=== PATIENT | female | born 1945 | race Two or more races ===

== ENCOUNTER → 2023-04-21 | Outpatient (CLI) | payer MEDICARE | END | disposition home or self-care (01) | LOC: Rad HDHVI 08:07 | PROVIDERS: ATTEND Internal Medicine Cardiovascular Disease | DX: I65.21 Occlusion and stenosis of right carotid artery (principal); E78.00 Pure hypercholesterolemia, unspecified | CPT/HCPCS: 93880 ==

== ENCOUNTER → 2023-04-26 | Outpatient (CLI) | payer MEDICARE ==
[~2023-04-26] VITALS: Ht 167.6 cm; Wt 59.0 kg
== END | disposition home or self-care (01) ==
LOC: Rad HDHVI 08:29
PROVIDERS: ATTEND Internal Medicine Cardiovascular Disease
DX: R42 Dizziness and giddiness (principal); R00.2 Palpitations; R06.02 Shortness of breath; E78.00 Pure hypercholesterolemia, unspecified; Z82.49 Family history of ischemic heart disease and other diseases of the circulatory system; Z79.82 Long term (current) use of aspirin; Z79.899 Other long term (current) drug therapy
CPT/HCPCS: 78452; 93017; 96374; A9500

== ENCOUNTER → 2024-03-13 | Outpatient (CLI) | payer MEDICARE | END | disposition home or self-care (01) | LOC: Rad HDHVI 08:05 | PROVIDERS: ATTEND Internal Medicine Cardiovascular Disease | DX: R42 Dizziness and giddiness (principal) | CPT/HCPCS: 93880 ==

== ENCOUNTER → 2024-03-29 | Outpatient (CLI) | payer MEDICARE | END | disposition home or self-care (01) | LOC: Rad HDHVI 08:02 | PROVIDERS: ATTEND Internal Medicine Cardiovascular Disease | DX: I10 Essential (primary) hypertension (principal) | CPT/HCPCS: 93306 ==

== ENCOUNTER → 2024-05-02 | Outpatient (CLI) | payer MEDICARE ==
[~2024-05-02] MED LIST: CHOLPOW45 PO; CYCL-839 PO; FAMO20TA10 PO; FLU01T PO; LEVO25TA6 PO; MAGN250T8 PO; MULT-1018 PO; OMEGCAP2 PO; SUCR1SUS5 PO; SUCR1TAB31 OR
[2024-05-02 09:20] VITALS: BP 128/60; PULSE 57; RESP 16; O2SAT 100
[2024-05-02 09:34] VITALS: BP 125/61; PULSE 55; RESP 16; O2SAT 100
== END | disposition home or self-care (01) ==
LOC: Rad HDHVI 08:54
PROVIDERS: ATTEND Internal Medicine Cardiovascular Disease
DX: Z01.811 Encounter for preprocedural respiratory examination (principal); E78.5 Hyperlipidemia, unspecified; I10 Essential (primary) hypertension; Z82.49 Family history of ischemic heart disease and other diseases of the circulatory system
CPT/HCPCS: 71046; 93005; G0463

== ENCOUNTER 2024-05-04 06:55 | Day surgery (SDC) | payer MEDICARE ==
[2024-05-02 11:32] LABS: Anion Gap 5 (5-15); Carbon Dioxide 30 mmol/L (20-31); Chloride 107 mmol/L (98-107); Potassium 4.6 mmol/L (3.5-5.1); Sodium 142 mmol/L (136-145)
[2024-05-02 11:33] LABS: Calcium 10.2 mg/dL (8.7-10.4)
[2024-05-02 11:37] LABS: Basophils # (auto) 0.1 10 ^3/uL (0-0.2); Basophils % (auto) 0.9 % (0.0-2.0); Eosinophils # (auto) 0.2 10 ^3/uL (0-0.8); Eosinophils % (auto) 2.9 % (0.0-7.0); Hematocrit 43.6 % (36.0-46.0); Hemoglobin 14.6 g/dL (12.2-16.2); Lymphocytes # (auto) 1.9 10 ^3/uL (0.4-5.4); Lymphocytes % (auto) 31.1 % (10.0-50.0); Mean Corpuscular Hemoglobin 30.2 pg (28.0-32.0); Mean Corpuscular Hgb Conc. 33.6 g/dL (32.0-36.0); Monocytes # (auto) 0.6 10 ^3/uL (0-1.3); Monocytes % (auto) 9.7 % (0.0-12.0); Neutrophils # (auto) 3.4 10 ^3/uL (1.6-8.6); Neutrophils % (auto) 55.4 % (37.0-80.0); Nucleated Red Blood Cells % 0.2 %; Platelet Count (auto) 185 10^3/uL (140-450); Red Blood Cells 4.84 10^6/uL (4.0-5.20); Red Cell Distribution Width 14.4 % (11.8-14.3); White Blood Cell 6.2 10^3/uL (4.4-10.8)
[2024-05-02 11:38] LABS: BUN/Creatinine Ratio 21.9 (10.0-20.0); Blood Urea Nitrogen 16 mg/dL (9-23); Glucose 97 mg/dL (74-106)
[2024-05-02 11:40] LABS: INR 1.03 (0.9-1.15); Partial Thromboplastin Time 28.3 SEC (24.5-34.5); Prothrombin Time 10.9 sec (9.3-11.8)
[~2024-05-04] VITALS: Ht 167.6 cm; Wt 59.4 kg
[~2024-05-04 06:55] MED LIST changes: -SUCR1TAB31 OR
[2024-05-04] MEDS ORDERED: fentaNYL CITRATE 100 MCG/2 ML VL ONE (08:58)
[2024-05-04] MEDS ORDERED: LIDOCAINE 2%HCL (LOCAL ANESTH.) INJ 20ML MDV ONE ×2 (08:58→09:15)
[2024-05-04] MEDS ORDERED: MIDAZOLAM HCL 2MG/2ML 2ml VIAL (1mg/ml) ONE (08:58)
[2024-05-04 09:17] VITALS: BP 111/60; PULSE 57; RESP 12; O2SAT 100
[2024-05-04 09:30] VITALS: BP 114/57; PULSE 60; RESP 12; O2SAT 98
[2024-05-04 09:45] VITALS: BP 116/41; PULSE 60; RESP 12; O2SAT 96
[2024-05-04 10:00] VITALS: BP 126/53; PULSE 60; RESP 12; O2SAT 96
[2024-05-04 10:11] VITALS: BP 131/59; PULSE 54; RESP 12
== END 2024-05-04 10:33 | disposition home or self-care (01) ==
LOC: CATH 06:55
PROVIDERS: ATTEND Internal Medicine Cardiovascular Disease
DX: R55 Syncope and collapse (principal); Z88.6 Allergy status to analgesic agent
CPT/HCPCS: 33285; 36415; 71045; 80048; 85025; 85610; 85730; C1764; J2250; J3010; 99152

== ENCOUNTER 2025-04-19 06:46 | Inpatient (IN) | payer MEDICARE ==
[2025-04-16 11:43] LABS: Hematocrit 43.8 % (36.0-46.0); Hemoglobin 14.9 g/dL (12.2-16.2); Mean Corpuscular Hemoglobin 29.8 pg (28.0-32.0); Mean Corpuscular Volume 87.7 fL (80.0-100.0); Nucleated Red Blood Cells % 0.0 %
[2025-04-16 11:49] LABS: Chloride 103 mmol/L (98-107); Potassium 4.3 mmol/L (3.5-5.1); Sodium 142 mmol/L (136-145)
[2025-04-16 11:50] LABS: Anion Gap 10 (5-15); Carbon Dioxide 29 mmol/L (20-31)
[2025-04-16 11:51] LABS: Calcium 9.6 mg/dL (8.7-10.4)
[2025-04-16 11:55] LABS: BUN/Creatinine Ratio 19.7 (10.0-20.0); Blood Urea Nitrogen 15 mg/dL (9-23); Glucose 96 mg/dL (74-106)
[2025-04-16 11:57] LABS: INR 1.01 (0.9-1.15); Partial Thromboplastin Time 29.6 SEC (24.5-34.5); Prothrombin Time 10.7 sec (9.3-11.8)
[2025-04-19] VITALS (41 sets, daily range): BP systolic 99–150; BP diastolic 41–97; PULSE 57–86; RESP 7–26; TEMP 97.1–98.6; O2SAT 92–100
[~2025-04-19] VITALS: Ht 165.1 cm; Wt 63.8 kg
[~2025-04-19 06:46] MED LIST changes: -FLU01T PO; -MAGN250T8 PO; -OMEGCAP2 PO
[2025-04-19] MEDS: VANCOMYCIN HCL 1000 MG VL ONE (09:49)
[2025-04-19] MEDS: fentaNYL CITRATE 100 MCG/2 ML VL ONE (09:49)
[2025-04-19] MEDS: MIDAZOLAM HCL 2MG/2ML 2ml VIAL (1mg/ml) ONE (09:50)
[2025-04-19] MEDS: LIDOCAINE 2%HCL (LOCAL ANESTH.) INJ 20ML MDV ONE ×3 (09:51→11:01)
[2025-04-19] MEDS: ceFAZolin 1GM/50ML 50 ML IV ONE (09:51)
[2025-04-19] MEDS: IODIXANOL 320MG/ML 100ML BTL IV ONE (10:16)
[2025-04-19] MEDS: HYDROmorphone HCL 2 MG/ML VL/or syr ONE (10:28)
[2025-04-19] MEDS: DOPamine 1600MCG/ML D5W 250 ML IV ONE (10:43)
--- NOTE | 2025-04-19 11:29 | DVH ---
EXAM: XY CHEST PORTABLE Indication: pain; s/p PPM Technique: Single frontal view of the chest was obtained Comparison: XY CHEST TWO VIEWS ROUTINE on DOS: 04/16/25, XY CHEST PORTABLE on DOS: 05/04/24, XY CHEST TWO VIEWS ROUTINE on DOS: 05/02/24, ECHO 2D MODE CARDIAC DOP on DOS: 04/07/23 FINDINGS: Lines and Tubes: Cardiac pacemaker projects over left chest wall. Lungs: No focal consolidation. Pleura: No effusion. No pneumothorax. Cardiomediastinal contours: Unremarkable. Atherosclerotic vascular calcifications of the thoracic ao rta are noted. Bones: No acute osseous abnormality. IMPRESSION: No acute cardiopulmonary disease.
--- NOTE | 2025-04-19 11:42 | DVHOP ---
DATE OF SURGERY: 04/19/2025 PROCEDURE PERFORMED: Explantation of loop recorder. INDICATIONS: The patient with history of palpitations, syncopal episode, now had a loop recorder implanted. She has adequate information that she needs to achieve a permanent pacemaker. She had sinus arrest period and high-degree AV block as well and because of the combination as well, the patient needs a pacemaker. Therefore, the loop recorder can be removed. DESCRIPTION OF PROCEDURE: The patient was prepped and draped in a sterile condition. Then, 1% Xylocaine was used to anesthetize the left anterior chest where the loop record had been implanted. Then, 1% Xylocaine was used to anesthetize the incision site and along the loop recorder. A small 1 cm incision was made and through the incision and using a Su, we were able to extract the loop recorder. There were no complications. The patient tolerated the procedure. The incision site was stapled. CONCLUSION: The patient has explantation of [employer] loop recorder, model ProMonitor 3, serial number [id number]. Implanted date was 05/04/2024, explanted date is 04/19/2025. CONCLUSION: The patient has successful explantation of [employer] loop recorder. Daniel Jimenez MD SA/AMBIKA TID: [id number] RECEIPT: [id number]
[2025-04-19] MEDS: ONDANSETRON HCL 4 MG/2 ML VIAL ONE (11:44)
--- NOTE | 2025-04-19 11:48 | DVHOP ---
DATE OF SURGERY: 04/19/2025 PROCEDURES PERFORMED: * Dual chamber permanent pacemaker implantation. * Venography. * Conscious sedation. DESCRIPTION OF PROCEDURE: The patient was prepped and draped in a sterile condition. Then, 1% Xylocaine was used to anesthetize the left subclavicular region. Using a Cook needle, left subclavian vein was engaged after venography was done. The patient, however, had a very horizontal heart and the anatomy was very distorted. Venogram showed the patient's subclavian artery was originating from a different location. Following the venography, we were able to access the subclavian/brachial portion of the vein. Via Seldinger technique, a guidewire was then appropriately positioned. Then, using a 10 blade, a linear incision was made. Using blunt dissection and electrocautery, the pocket was then dissected out. Using a 9-Greek peel-away sheath, right ventricular active fixation lead was appropriately positioned, but because of the horizontal nature of the heart while manipulating the RV lead, the lead actually jumped forward rapidly. We feared perforation of the ventricle. We repositioned the lead now in the right ventricular septum. Appropriate threshold was obtained. Lead was secured to the chest wall using 0 Ethibond. Then, using a 7-Greek peel-away sheath, right atrial active fixation lead was then appropriately position. Threshold parameters were obtained. The lead was secured to the chest wall using 0 Ethibond. Pocket was irrigated using vancomycin saline solution. Pocket was closed using 3-0 Monoderm subcutaneous sutures followed by 3-0 Monoderm subcuticular sutures. However, following the insertion of the pacemaker, we noted that her blood pressure had precipitously dropped, running in the 140s systolic to into the 60s and 70s. Therefore, fluid was given. Dopamine was initiated. Then, a chest x-ray was performed. It showed no evidence for pneumothorax or tension pneumothorax. A 2D echocardiogram was performed while the patient was still on the table, and it was felt that the patient had pericardial effusion, findings consistent with tamponade. Therefore, once the pacemaker insertion was completed, we proceeded to do a pericardiocentesis per protocol. It will be dictated in a separate note. Daniel Jimenez MD SA/AMBIKA TID: [id number] RECEIPT: [id number]
--- NOTE | 2025-04-19 11:52 | DVHOP ---
DATE OF SURGERY: 04/19/2025 DESCRIPTION OF PROCEDURE: The patient, who needed a permanent pacemaker implantation, but the horizontal nature of the heart while inserting the pacemaker, the ventricular lead essentially jumped forward while we were manipulating it. It appeared as though we had perforated the heart and suspicion was correct. The patient precipitously dropped her blood pressure and echocardiogram showed a 1 cm pericardial effusion. We proceeded to do pericardiocentesis under conscious sedation, under fluoroscopic guidance and under echocardiography guidance. The patient was prepped and draped under sterile conditions. Then, 1% Xylocaine was used to anesthetize the subxiphoid region. A 1 cm cut was made and using the pericardiocentesis tray needle, we were able to advance into the pericardial space. Agitated saline was then injected and it appeared also we were in the correct position. Following that, the pericardiocentesis catheter was implanted. Pigtail catheter was implanted, but we needed extra support, and therefore, we had to use a Supra Core wire for the support it needed. Following the placement of the pericardial pigtail catheter, we were able to withdraw 180 mL of sanguineous bloody drainage, at which point the blood pressure responded back to normal, tachycardia resolved, and the patient remained asymptomatic. A total of 200 mL was withdrawn. There was no evidence of any further effusion noted. The RV collapse completely resolved. We left the pigtail catheter for overnight purposes and to be monitored for 24 hours. One unit of blood transfusion will be given. The patient received 1000 mL of normal saline during the course of the procedure to stabilize the blood pressure. Dopamine was titrated off and the patient's blood pressure remained stable at 117/74 with a pulse of 60. CONCLUSION: The patient developed pericardiocentesis, which is a known complication of pacemaker implantation and the lead jumped forward because of horizontal orientation of the heart. We successfully repositioned the lead. Pacemaker was implanted successfully and pericardiocentesis was done promptly during the same course of implantation. At this time, the patient is hemodynamically stable. No further workup is required. We will monitor her with serial chest x-ray and EKG as well as echocardiography. Daniel Jimenez MD SA/AMBIKA TID: [id number] RECEIPT: [id number]
[2025-04-19] MEDS ORDERED: ACETAMINOPHEN 325 MG TAB PO PRN (12:15)
[2025-04-19] MEDS ORDERED: SUCRALFATE 1 GM/10 ML ORAL SUSP PO PRN (12:15)
[2025-04-19] MEDS ORDERED: NITROGLYCERIN 0.4 MG SL TAB SL PRN (12:15)
[2025-04-19] MEDS ORDERED: MORPHINE SULFATE INJ 2 MG/ml SYRG IV PRN (12:15)
[2025-04-19] MEDS ORDERED: MORPHINE SULFATE 4 MG/ML SYR/VIAL IV PRN (13:45)
[2025-04-19] MEDS ORDERED: HYDROcodone-ACET 10/325MG TAB PO PRN (17:30)
[2025-04-19] MEDS: HYDROmorphone HCL 2 MG/ML VL/or syr IV PRN (17:42)
[2025-04-19] MEDS: ONDANSETRON HCL 4 MG/2 ML VIAL IV PRN (17:43)
[2025-04-19] MEDS: ceFAZolin 1GM/50ML 50 ML IV SCH (18:41)
[2025-04-19] MEDS: KETOROLAC TROMETH 30 MG/ML 1ML VIAL IV PRN (22:53)
[2025-04-20] VITALS (33 sets, daily range): BP systolic 92–135; BP diastolic 48–69; PULSE 61–77; RESP 9–18; TEMP 97.6–98.8; O2SAT 90–98
[2025-04-20 04:20] LABS: Hematocrit 38.9 % (36.0-46.0); Hemoglobin 13.5 g/dL (12.2-16.2); Mean Corpuscular Hemoglobin 30.1 pg (28.0-32.0); Mean Corpuscular Volume 86.6 fL (80.0-100.0); Nucleated Red Blood Cells % 0.1 %
[2025-04-20 04:37] LABS: Anion Gap 10 (5-15); Carbon Dioxide 26 mmol/L (20-31); Chloride 106 mmol/L (98-107); Potassium 3.9 mmol/L (3.5-5.1); Sodium 142 mmol/L (136-145)
[2025-04-20 04:43] LABS: BUN/Creatinine Ratio 27.0 (10.0-20.0); Blood Urea Nitrogen 17 mg/dL (9-23)
[2025-04-20 04:48] LABS: Calcium 8.5 mg/dL (8.7-10.4); Glucose 112 mg/dL (74-106)
--- NOTE | 2025-04-20 05:50 | DVH ---
CHEST RADIOGRAPH Indication: S/P PPI Technique: Single frontal view of the chest was obtained COMPARISON: XY CHEST PORTABLE on DOS: 04/19/25, XY CHEST TWO VIEWS ROUTINE on DOS: 04/16/25, XY CHEST P ORTABLE on DOS: 05/04/24, XY CHEST TWO VIEWS ROUTINE on DOS: 05/02/24 FINDINGS: Lines and Tubes: None. Left anterior chest wall dual lead cardiac pacing device. Lungs: New minimal bibasilar pulmonary airspace disease. Pleura: No effusion. No pneumothorax. Cardiomediastinal contours: Unremarkable Bones: Unremarkable IMPRESSION: 1. New minimal bibasilar pulmonary airspace disease.
--- NOTE | 2025-04-20 06:17 | DVHHP ---
ADMIT DATE: 04/19/2025 HISTORY OF PRESENT ILLNESS: This is a patient who is 79 years old with history of syncope, now loop recorder shows the patient to have high-grade blockage of the AV node as well as pauses of the sinus node. The patient required a permanent pacemaker implantation and the loop recorder information was adequately obtained and now the loop recorder is to be discontinued. It was a year ago when the loop recorder was initially implanted, it is a [employer] loop recorder. PAST MEDICAL HISTORY: Pertinent medical history is significant for: * Hypertension. * Hyperlipidemia. * Sick sinus syndrome. * History of syncope. REVIEW OF SYSTEMS: She denies any seizure disorder. No melena or hematuria. No hematemesis, hemoptysis or hematuria. She denies any bleeding diathesis at this time. She denies any history of CVA as stated. Denies any inflammatory bowel disease. No mixed connective tissue disease. No history of congestive heart failure. No history of systolic or diastolic dysfunction. PHYSICAL EXAMINATION: VITAL SIGNS: Blood pressure is 142/76, pulse of 52 and regular, O2 saturation 94% on room air. HEENT: Pupils are equal and reactive. NECK: Supple. Carotid pulses are 2+ and symmetrical. PULMONARY: Clear to auscultation. CARDIOVASCULAR: Regular rate. PMI is not displaced. ABDOMEN: Soft and nontender. Normal bowel sounds. SKIN: Unremarkable. EXTREMITIES: Unremarkable. NEUROLOGIC: The patient is intact. ASSESSMENT AND PLAN: Thus, the patient with: * Sinus arrest. * Syncope. * History of AV block by tele-monitor. The patient is now to undergo dual-chamber permanent pacemaker implantation and removal/extraction of the loop recorder. Daniel Jimenez MD SA/GISELA TID: [id number] RECEIPT: [id number]
[2025-04-20] MEDS: LEVOTHYROXINE SODIUM 25 MCG TAB PO SCH (06:33)
--- NOTE | 2025-04-20 07:34 | ECG ---
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
--- NOTE | 2025-04-20 09:16 | DVHPN2 ---
Progress Note - Dictate Date Seen: Apr 20, 2025 Medical Necessity Reason Pt with a Central, PICC or Fol: No Subjective This is a patient who is 79 years old with history of syncope, now loop recorder shows the patient to have high-grade blockage of the AV node as well as pauses of the sinus node. The patient required a permanent pacemaker implantation and the loop recorder information was adequately obtained and now the loop recorder is to be discontinued. It was a year ago when the loop recorder was initially implanted, it is a [employer] loop recorder. PAST MEDICAL HISTORY: Pertinent medical history is significant for: * Hypertension. * Hyperlipidemia. * Sick sinus syndrome. * History of syncope. REVIEW OF SYSTEMS: She denies any seizure disorder. No melena or hematuria. No hematemesis, hemoptysis or hematuria. She denies any bleeding diathesis at this time. She denies any history of CVA as stated. Denies any inflammatory bowel disease. No mixed connective tissue disease. No history of congestive heart failure. No history of systolic or diastolic dysfunction. vital signs Vital Sign Date Time Temp Pulse Resp B/P (MAP) Pulse Ox O2 Delivery O2 Flow Rate FiO2 04/20/25 07:56 73 98 Nasal Cannula* 1 24 04/20/25 07:30 14 04/20/25 07:00 101/54 (70) 04/20/25 04:00 98.7 98.7 Total Intake and Output 04/19/25 04/19/25 04/20/25 15:00 23:00 07:00 Intake Total 375 ml 300 ml Output Total 70 ml 150 ml Balance 305 ml 150 ml medications Current Medications Medications Dose Ordered Sig/Mari Route Start Time Stop Time Status Last Admin Dose Admin Acetaminophen 650 mg Q6HP PRN PO 04/19/25 12:15 Nitroglycerin 0.4 mg Q5MINP PRN SL 04/19/25 12:15 Morphine Sulfate 2 mg Q30M PRN IV 04/19/25 12:15 Cancel Cefazolin Sodium 50 ml @ 100 mls/hr Q8HR IV 04/19/25 18:00 04/20/25 06:23 100 MLS/HR Hydromorphone HCl 0.5 mg Q6HP PRN IV 04/19/25 12:15 04/19/25 17:42 0.5 MG Famotidine 20 mg DAILY PO 04/20/25 10:00 Levothyroxine Sodium 75 mcg QAM PO 04/20/25 07:00 04/20/25 06:33 75 MCG Sucralfate 2 gm BIDP PRN PO 04/19/25 12:15 Ondansetron HCl 4 mg Q4HPRN PRN IV 04/19/25 13:15 04/19/25 17:43 4 MG Morphine Sulfate 2 mg Q30MIN PRN IV 04/19/25 13:45 Acetaminophen/ Hydrocodone Bitart 1 tab Q6HP PRN PO 04/19/25 17:30 Ketorolac Tromethamine 30 mg Q8HP PRN IV 04/19/25 22:00 04/24/25 21:59 04/20/25 07:05 30 MG objective PHYSICAL EXAMINATION: VITAL SIGNS: Blood pressure is 142/76, pulse of 52 and regular, O2 saturation 94% on room air. HEENT: Pupils are equal and reactive. NECK: Supple. Carotid pulses are 2+ and symmetrical. PULMONARY: Clear to auscultation. CARDIOVASCULAR: Regular rate. PMI is not displaced. ABDOMEN: Soft and nontender. Normal bowel sounds. SKIN: Unremarkable. EXTREMITIES: Unremarkable. NEUROLOGIC: The patient is intact. laboratory and microbiology Laboratory Tests 04/20/25 03:30 Test 04/20/25 03:30 Range/Units Serum Glucose 112 H 74-106 mg/dL Problem List S/P DUAL PPI HOWEVER DEVELOPED PERICARDIAL EFFUSION S/P PERICARDIOCENTESIS Assessment/Plan CHECK CXR REPEAT ECHO IF NO FURTHER EFFUSION DC PERICARDIOCENTESIS CATHETER Plan discussed with: Patient Critical Care Time(min): 35 DAVID ALLAN MD Apr 20, 2025 09:16
--- NOTE | 2025-04-20 09:33 | ECG ---
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
[2025-04-20] MEDS: FAMOTIDINE 20 MG TAB PO SCH (10:18)
[2025-04-21 01:00] VITALS: BP 99/50; PULSE 70; RESP 19; TEMP 98.1; O2SAT 93
[2025-04-21 05:00] VITALS: BP 106/54; PULSE 66; RESP 18; TEMP 97.8; O2SAT 92
[2025-04-21 08:00] VITALS: PULSE 65; PULSE 70; RESP 18; O2SAT 95
[2025-04-21 08:53] VITALS: BP 112/74; PULSE 64; RESP 16; TEMP 98.1; O2SAT 98
[2025-04-21 12:48] VITALS: BP 104/63; PULSE 65; RESP 16; TEMP 98.8; O2SAT 94
[2025-04-21 16:04] VITALS: BP 127/61; PULSE 65; RESP 18; TEMP 37.1; O2SAT 95
--- NOTE | 2025-04-24 13:44 | DVHSR ---
APPROVED REPORT EXAM: Two-dimensional and M-mode echocardiogram with Doppler and color Doppler. Blood Pressure: 101/54 mmHg INDICATION Evaluate pericardial effusion RISK FACTORS Height: 5'5", Weight: 140 Mitral Valve MitralMitral Stenosis E/A ratio0.02D MVAcm2 Other Information Quality : Technically LimitedRhythm : Technically limited study due to body habitus. Conclusion EF >55% NO PERICARDIAL EFFUSION
== END 2025-04-21 17:30 | disposition home or self-care (01) | DRG 243 ==
LOC: CATH 06:46 → OVERFLOW 12:10 → ICU WEST 15:41 → TELE-WESTW 04-20 17:12
PROVIDERS: ADMIT Internal Medicine Cardiovascular Disease; ATTEND Internal Medicine Cardiovascular Disease
PROC: 02H63JZ Insertion of Pacemaker Lead into Right Atrium, Percutaneous Approach (ICD-10-PCS; principal; 2025-04-19)
PROC: 0JH606Z Insertion of Pacemaker, Dual Chamber into Chest Subcutaneous Tissue and Fascia, Open Approach (ICD-10-PCS; 2025-04-19)
PROC: 02HK3JZ Insertion of Pacemaker Lead into Right Ventricle, Percutaneous Approach (ICD-10-PCS; 2025-04-19)
PROC: B5171ZZ Fluoroscopy of Left Subclavian Vein using Low Osmolar Contrast (ICD-10-PCS; 2025-04-19)
PROC: 0JPT32Z Removal of Monitoring Device from Trunk Subcutaneous Tissue and Fascia, Percutaneous Approach (ICD-10-PCS; 2025-04-19)
PROC: 0W9D3ZZ Drainage of Pericardial Cavity, Percutaneous Approach (ICD-10-PCS; 2025-04-19)
PROC: 30233N1 Transfusion of Nonautologous Red Blood Cells into Peripheral Vein, Percutaneous Approach (ICD-10-PCS; 2025-04-19)
DX: I44.30 Unspecified atrioventricular block (principal); I31.39 Other pericardial effusion (noninflammatory); I10 Essential (primary) hypertension; E78.5 Hyperlipidemia, unspecified; I45.5 Other specified heart block; Z88.8 Allergy status to other drugs, medicaments and biological substances
CPT/HCPCS: 33010; 33016; 33208; 33286; 36415; 71045; 80048; 85025; 85610; 85730; 86850; 86900; 86901; 86920; 87081; 93005; 93306; 99152; G0378; G0463; J1885; J2250; J2405; Q9967

== ENCOUNTER 2025-05-03 09:45 | Outpatient (CLI) | payer MEDICARE ==
[2025-05-03 09:48] VITALS: BP 137/63; PULSE 70; RESP 16; O2SAT 98
[2025-05-03] MEDS: BACITRACIN TOP OINT 1 UD PKG TOP ONE ×2 (10:02→10:55)
[2025-05-03 10:04] VITALS: BP 145/67; PULSE 67; RESP 16; O2SAT 98
== END 2025-05-03 17:00 | disposition home or self-care (01) ==
LOC: CHF HDHVI 09:45
PROVIDERS: ATTEND Internal Medicine Cardiovascular Disease
DX: Z48.02 Encounter for removal of sutures (principal)
CPT/HCPCS: G0463

== ENCOUNTER 2025-05-15 12:00 | Outpatient (CLI) | payer MEDICARE ==
--- NOTE | 2025-05-16 16:09 | DVHSR ---
APPROVED REPORT EXAM: Two-dimensional and M-mode echocardiogram with Doppler and color Doppler. Surgery/Intervention Pacemaker: DIMENSIONS LVDd4.5 (3.8-5.7cm)LA (2D)3.5 (1.9-4.0cm)Aortic Root3.3 (2.0-3.7cm) LVDs2.7 (2.5-4.0cm)LA (MM) (1.9-4.0cm)Aortic Cusp Exc1.5 (1.5-2.0cm) EF (%) 60.0 (55-70%)Rt. Atrium3.8 (1.9-4.0cm)Asc. Aorta cm IVSd1.0 (0.7-1.1cm)RV (D)3.3 (1.8-2.4cm) PWd0.8 (0.7-1.1cm) Mitral Valve MitralMitral Stenosis E wave0.61m/sMV Mean GR.mmHg A wave1.15m/sMV Peak GR.mmHg E/A ratio0.52D MVAcm2 DECEL [id number] 1/2 Timems Aortic Valve Aortic ValveAortic Stenosis V11.10m/Jaclyn Mean GR.3mmHg V21.15m/Jaclyn Peak GR.5mmHg LVOT Diameter2.0 (1.8-2.4cm)Doppler AVA3.00cm2 AI P 1/2 Ybsl593.63ms Pulmonic Valve V20.65m/s LEFT VENTRICLE The left ventricle is normal size. The left ventricle is normal in structure and function. The Ejection Fraction is within normal limits. RIGHT VENTRICLE The right ventricle is normal size. There is a pacemaker lead in the right ventricle. ATRIA The left atrial size is normal. The right atrium size is normal. The interatrial septum is intact with no evidence for an atrial septal defect. MITRAL VALVE The mitral valve is normal in structure. Mitral annular calcification is mild to moderate. Mitral regurgitation is mild. PULMONIC VALVE The pulmonic valve is not well visualized. There is mild pulmonic valvular regurgitation. TRICUSPID VALVE The tricuspid valve is grossly normal. There is trace tricuspid regurgitation. AORTIC VALVE The aortic valve opens well. The aortic valve is mildly sclerotic. There is mild aortic regurgitation. GREAT VESSELS The aortic root is normal size. PERICARDIAL EFFUSION There is no pericardial effusion. Conclusion EF >55% MOD MAC MILD AI MILD MR
== END 2025-05-15 17:00 | disposition home or self-care (01) ==
LOC: Rad HDHVI 12:00
PROVIDERS: ATTEND Internal Medicine Cardiovascular Disease
DX: I08.8 Other rheumatic multiple valve diseases (principal); I50.33 Acute on chronic diastolic (congestive) heart failure; R42 Dizziness and giddiness
CPT/HCPCS: 93306